=== PATIENT | female | born 2000 | race Two or more races ===

== ENCOUNTER 2024-05-14 18:54 | Emergency (ER) | payer MEDICAID, SELFPAY ==
[2024-05-14 18:55] VITALS: BMI 25.7
[2024-05-14 19:15] VITALS: BP 104/67; PULSE 84; RESP 18; TEMP 36.9; O2SAT 99
--- NOTE | 2024-05-14 19:28 | XR_ITS ---
Examination: Shoulder,left, 3 views Technique: Shoulder AP internal rotation, AP external rotation, Y view shoulder, 3 views Exam date and time :May 14, 2024 at 1947 hours INDICATIONS: Ground-level fall 4 days ago with injury to the shoulder, shoulder pain FINDINGS: No shoulder fracture or dislocation No foreign body IMPRESSION: No shoulder fracture or dislocation
--- NOTE | 2024-05-14 19:28 | XR_ITS ---
Examination: Left shoulder 2 views TECHNIQUE: Axial Y view left shoulder 2 views Exam date and time: May 14, 2024 at 1950 hours INDICATIONS: Ground-level fall 4 days ago with shoulder pain FINDINGS: No shoulder fracture or dislocation IMPRESSION: No shoulder fracture or dislocation
--- NOTE | 2024-05-14 19:32 | PD.EDFALL ---
ED Fall Injury RME/HPI General Chief Complaint: Fall Stated Complaint: L) SHOULDER PAIN/SWELLING X 6 DAYS, FELL Time Seen by Provider: 05/14/24 18:58 Arrival date/time: 05/14/24 18:54 24 year old female present to emergency room with c/o of left shoulder injury s/p GLF 6 days ago. pt did not seek medical intervation after injury. LOCATION: shoulder SEVERITY: Symptoms are described as being severe with limitations on activities of daily living QUALITY: Symptoms are described as being dull or achy CONTEXT: GLF DURATION/TIMING: The symptoms started approximately 6 days ago and have been constant this then. ASSOCIATED SYMPTOMS: The patient is unable to identify any other associated symptoms. MODIFYING FACTORS: The patient is unable to identify any alleviating or aggravating symptoms. PERTINENT ROS: no fevers, no headache, no neck or chest pain, no unexplained nausea or vomiting, no focal neurological deficits REVIEW OF SYSTEMS: See History of Present Illness - with the exception of those mentioned in the history of present illness, all other systems reviewed and reported as negative GENERAL: In general the patient is awake, interactive, in an emergency department gurney. HEAD/EYES/EARS/NOSE/THROAT: normo-cephalic, atraumatic, mucus membranes are moist, anicteric, palpebral conjunctiva is pink, trachea is midline. CARDIOVASCULAR: regular rate and regular rhythm, no murmurs, heart sounds are not distant, strong pulses in all four extremities that are equal and symmetric bilateral upper and lower extremities, normal capillary refill. CHEST/PULMONARY: normal chest rise and fall, good air movement, clear to auscultation bilaterally, normal inspiratory to expiratory ratios without evidence of respiratory distress. NECK: No midline/Paraspinal tenderness, no step off ROM/Strenght intact No Kernig and bruzinski sign. No trauma ABDOMEN: soft, not tender, no masses appreciated BACK: normal range of motion without pain. NEUROLOGICAL: cranio-facial features are symmetric, moves all four extremities equally without obvious limitations or weakness. EXTREMITY: Left shoulder and scapular tenderness, decrease range of motion no tenderness to palpation over the long bones or large joints of the bilateral extremities, no joint swelling, no joint erythema, no signs of trauma, no unilateral leg swelling and no peripheral edema. SKIN: warm, dry, well-perfused, no jaundice, no rash, no telangiectasias or petechia. PSYCH: calm, cooperative, no evidence of psychosis or agitation Related Data Previous Rx's ?Medication ?Instructions ?Recorded ibuprofen 400 mg tablet 400 mg PO Q6H PRN fever or pain 12/03/19 #30 tabs Allergies Allergy/AdvReac Type Severity Reaction Status Date / Time No Known Allergies Allergy Verified 05/14/24 18:56 Course Course Course Narrative: xray shoulder to rule fx rice protocol sling stretching take tylenol or motrin as need follow up with PCP in 1 week Quality Measures none Orders Category Date Time Status XR scapula LT Stat Exams 05/14/24 19:28 Completed XR shoulder LT min 2V Stat Exams 05/14/24 19:28 Completed Vital Signs Vital signs: Vital Signs Temperature 98.4 F 05/14/24 19:15 Pulse Rate 84 05/14/24 19:15 Respiratory Rate 18 05/14/24 19:15 Blood Pressure 104/67 05/14/24 19:15 Pulse Oximetry (%) 99 05/14/24 19:15 Oxygen Delivery Method Room Air 05/14/24 19:15 Fall Patient data External records reviewed:: [facility] previous records Clinical information provided by:: patient Social determinants that could affect healthcare access:: none Patient has the following chronic illnesses:: n/a How is presenting disease/condition affected by chronic disease/condition?: no chronic disease Evaluation data The following diagnostics were reviewed and interpreted by me:: radiology exam(s) Lab and/or radiology exams considered but not ordered:: n/a Interpretation Summary: shoulder/scapular no acute findings Medications / Prescriptions Medications or Prescriptions considered but not ordered:: n/a Medication administrations:: n/a Consultations Consultation(s) initiated? (list below): No Diagnosis Fall Differential Diagnosis: other (shoulder fx vs contusion vs strain/sprain ) Most likely diagnosis given after review of the tests above:: shoulder contusion Admission Indicated Admission indicated?: not indicated Explain why admission is indicated or not indicated:: n/a Admission Request Was there a request for admission?: No Disposition Plan Disposition Plan: Discharge Discharge Attestation Discharge Attestation: The patient and all family members were given an opportunity to ask questions and understood the discharge instructions. Discharge instructions specifically effects, indications for sooner follow up or return to the emergency department, and the expected course of current diagnosis. Patient condition: Stable Discharge Plan Plan Patient Disposition: HOME (Self Care) Health Concerns: Follow with PMD as directed Take tylenol or motrin as need Return to ED if sx worsen Prescriptions/Referrals Prescriptions/Med Rec: No Action ibuprofen 400 mg tablet 400 mg PO Q6H PRN (Reason: fever or pain) Qty: 30 0RF Referrals: Parvez Eugene MD [Primary Care Provider] - In 1 week Problem List Clinical Impression: Contusion of left shoulder Patient/Caregiver Discharge Instructions Education Materials: ED Shoulder Contusion Print Language: Vietnamese Stand Alone Forms: Juliann Award Info., Patient Portal Info Letter
[2024-05-14] MEDS: KETOROLAC INJ 30 MG/ML VIAL IM (21:59)
== END 2024-05-14 22:05 | disposition home or self-care (01) ==
PROVIDERS: Emergency Provider Emergency Medicine; PCP Family Medicine
DX: S40.012A Contusion of left shoulder, initial encounter (principal); S49.92XA Unspecified injury of left shoulder and upper arm, initial encounter; W18.30XA Fall on same level, unspecified, initial encounter
CPT/HCPCS: 73010; 73030; 96372; 99283; J1885